=== PATIENT | female | born 1990 | race Caucasian/White ===

== ENCOUNTER → 2016-03-08 | Outpatient (CLI) | payer BC ==
[~2016-03-08] MED LIST: DOCU-94 PO; MTR600X PO; OXYC-57 PO; PRENTAB26 PO; ZANTAC PO
[2016-03-08 16:42] LABS: HEMATOCRIT 34.6 % (37-47)
[2016-03-08 17:26] LABS: GTGD 50 Grams
== END | disposition home or self-care (01) ==
LOC: C.LAB1850 15:18
PROVIDERS: ATTEND Obstetrics & Gynecology
DX: Z34.93 Encounter for supervision of normal pregnancy, unspecified, third trimester (principal)

== ENCOUNTER → 2016-03-08 | Outpatient (CLI) | payer BC ==
[2016-03-08 18:50] LABS: URINE APPEARANCE CLEAR (CLEAR); URINE BILIRUBIN NEG (NEG); URINE COLOR YELLOW; URINE NITRITE NEG (NEG); URINE SPECIFIC GRAVITY 1.008 (1.000-1.030); UROBILINOGEN NEG (NEG)
[2016-03-08 19:00] LABS: MANUAL MICROSCOPIC REQUIRED? NO; REVIEW REQ? NO
== END | disposition home or self-care (01) ==
LOC: C.LABSPEC 17:55
PROVIDERS: ATTEND Obstetrics & Gynecology
DX: Z34.93 Encounter for supervision of normal pregnancy, unspecified, third trimester (principal)

== ENCOUNTER → 2016-05-04 | Outpatient (CLI) | payer BC | END | disposition home or self-care (01) | LOC: C.LABSPEC 17:32 | PROVIDERS: ATTEND Obstetrics & Gynecology | DX: Z34.93 Encounter for supervision of normal pregnancy, unspecified, third trimester (principal) ==

== ENCOUNTER 2016-05-24 07:30 | Inpatient (IN) | payer BC ==
[~2016-05-24] VITALS: Ht 160 cm; Wt 91.0 kg
[~2016-05-24 07:30] MED LIST changes: -DOCU-94 PO; -MTR600X PO; -OXYC-57 PO; -ZANTAC PO
[2016-05-28] MEDS ORDERED: DOCU-94 PO (13:48)
[2016-05-28] MEDS ORDERED: ZANTAC PO (13:49)
--- NOTE | 2016-05-28 14:13 | HISTORY & PHYSICAL EXAMINATION ---
DATE OF ADMISSION: 05/31/2016 CHIEF COMPLAINT: 1. Intrauterine at 40 and 3. 2. History of previous section. HISTORY OF PRESENT ILLNESS: Rose is a 26-year-old white female 2, para 1-0-0-1 with a history of a previous section in her prior . Apparently, she failed to progress after 9 cm to deliver a 8 pound 3 ounce baby at 40 weeks. The patient was hoping for , but unfortunately has not labored and now presents for a default repeat section. She notes good movement, no real contractions, leaking of fluid or vaginal bleeding. Her current has been uncomplicated. She has been troubled with some heartburn, for which she has taken Zantac. PAST OBSTETRIC AND GYNECOLOGIC HISTORY: As noted above. She denies history of abnormal Pap smears or STDs. She did have PIH in her first , but her pressures have been normal in this . ALLERGIES: No known drug allergies. MEDICATIONS: vitamins, Zantac and Colace. PAST MEDICAL HISTORY: Significant for PIH. She denies thyroid disease, asthma, heart disease, heart murmur, diabetes, kidney or liver problems. PAST SURGICAL HISTORY: Include and appendectomy. SOCIAL HISTORY: The patient denies tobacco, alcohol or drug use. She lives with her spouse and child. FAMILY HISTORY: The patient's mother recently diagnosed with hemochromatosis, but otherwise there is no significant cancer history. PHYSICAL EXAMINATION: GENERAL: This is a well-developed and well-nourished white female in no acute distress. VITAL SIGNS: Her blood pressure is 112/62 and her weight is 200 pounds. CHEST: Clear to auscultation bilaterally. CARDIOVASCULAR: Regular rate and rhythm without murmurs, gallops or rubs. BACK: Without costovertebral angle tenderness. ABDOMEN: Soft, gravid and nontender. EXTREMITIES: Show trace edema, but are otherwise benign. PELVIC: Deferred. LABORATORY DATA: Blood type O positive, antibody negative, rubella immune, RPR nonreactive, hepatitis B negative, HIV negative, chlamydia and gonorrhea cultures negative. One-hour glucose tolerance test 89. A 28-week glucose tolerance test 114. GBS is negative. ASSESSMENT: Rose is a 26-year-old white female 2, para 1-0-0-1 at 40 and 3/7th weeks, who presents for repeat delivery. The patient was consented for delivery. The risks of the procedure were discussed with the patient including the risks of anesthesia, bleeding requiring transfusion, infection, poor wound healing, damage to surrounding structures including bowel, bladder, vessels, nerves and ureters with need for further surgery, hospitalization or intervention. We also discussed the small risk of injury to the baby. We discussed the risks of surgery including heart attack, blood clot, stroke or . Questions were asked and answered. Consent was reviewed and signed and surgery is planned for May 31. SILVESTRE
--- NOTE | 2016-05-28 14:16 | PAT Medication Instructions ---
Service Date May 28, 2016. Current Home Medication List Docusate Sodium (Colace), 1 CAP PO BID Multivit/Min/Iron/Fol Ac/Pren ( Vitamin), 1 TAB PO QAM [Zantac], 75 MG PO PRN Medication Instructions For Your Scheduled Surgery - Hold the following medications the morning of surgery: [Zantac], 75 MG PO PRN Multivit/Min/Iron/Fol Ac/Pren ( Vitamin), 1 TAB PO QAM Docusate Sodium (Colace), 1 CAP PO BID - Take the following medications as scheduled the night before surgery: [Zantac], 75 MG PO PRN Docusate Sodium (Colace), 1 CAP PO BID If you have any questions please call us at [phone] (Leila Mark PA-C) or [phone] or [phone]
[2016-05-28 14:47] LABS: BASO % 0.1 %; BASO ABS # 0.01 K/uL (0-0.2); COMPLETE YES; EOS % 1.3 %; HEMATOCRIT 32.8 % (37-47); IG% 0.4 %; LYMPH % 15.6 %; LYMPH ABS # 1.42 K/uL (1.2-3.4); MEAN CORPUSCULAR HEMOGLOBIN 26.1 pg (25-34); MEAN CORPUSCULAR HGB CONC 32.6 g/dl (32-36); MONO % 5.5 %; NEUT % 77.1 %; PLATELET COUNT 152 K/uL (130-400); WHITE BLOOD COUNT 9.13 K/uL (4.8-10.8)
[2016-05-31] VITALS (11 sets, daily range): BP systolic 103–132; BP diastolic 60–81; PULSE 74–86; TEMP 36.6–37.3; O2SAT 93–100; Ht 160 cm; Wt 91.0 kg
[2016-05-31] MEDS ORDERED: LACTATED RINGER'S 1000ML 1,000 ML IV SCH (05:45)
[2016-05-31] MEDS ORDERED: CEFAZOLIN 2000 MG/60 ML D5W 50 ML IV SCH (06:00)
[2016-05-31] MEDS ORDERED: CITRIC ACID/SODIUM CITRATE 15 ML UDC PO SCH (06:00)
[2016-05-31] MEDS ORDERED: CEFAZOLIN IV 2,000 MG in DEXTROSE 5% 50ML 50 ML IV SCH (06:00)
[2016-05-31] MEDS ORDERED: LACTATED RINGER'S 1000ML 1,000 ML IV ONE (06:00)
[2016-05-31 06:16] LABS: BASO % 0.1 %; BASO ABS # 0.01 K/uL (0-0.2); COMPLETE YES; EOS % 1.4 %; HEMATOCRIT 32.2 % (37-47); IG% 0.5 %; LYMPH % 17.6 %; LYMPH ABS # 1.38 K/uL (1.2-3.4); MEAN CELL VOLUME 79.1 fL (80-100); MEAN CORPUSCULAR HEMOGLOBIN 26.5 pg (25-34); MEAN CORPUSCULAR HGB CONC 33.5 g/dl (32-36); MEAN PLATELET VOLUME 9.9 fL (7.4-10.4); MONO % 6.6 %; NEUT % 73.8 %; PLATELET COUNT 159 K/uL (130-400); RED BLOOD COUNT 4.07 M/uL (4.2-5.4); WHITE BLOOD COUNT 7.85 K/uL (4.8-10.8)
[2016-05-31] MEDS: LACTATED RINGER'S 1000ML 1,000 ML IV SCH ×2 (07:08→17:59)
[2016-05-31] MEDS ORDERED: FENTANYL CITRATE INJ 50 MCG/1 ML 2 ML VIAL ONE (07:19)
[2016-05-31] MEDS ORDERED: MoRPHine SULFATE PF 1 MG/ML 10 ML AMP/VIAL ONE (07:21)
[2016-05-31] MEDS ORDERED: PHENYLEPHRINE HCL INJ 10 MG/ML VIAL ONE (08:05)
[2016-05-31] MEDS ORDERED: OXYTOCIN INJ 10 UNITS/ML VIAL ONE ×3 (08:05→08:27)
[2016-05-31] MEDS ORDERED: METHYLERGONOVINE MALEATE 0.2 MG/ML AMP ONE (08:28)
[2016-05-31] MEDS ORDERED: OXYTOCIN INJ 20 UNITS in LACTATED RINGER'S 1000ML 1,000 ML IV SCH ×2 (08:44→08:54)
[2016-05-31] MEDS ORDERED: BENZOCAINE 20% AER SPR 82.5 GM CAN EXT PRN (08:45)
[2016-05-31] MEDS ORDERED: HYDROCORTISONE ACETATE 25 MG SUPP PR PRN (08:45)
[2016-05-31] MEDS ORDERED: SENNA 8.6 MG TAB PO PRN (08:45)
[2016-05-31] MEDS ORDERED: MAGNESIUM HYDROXIDE SUSP 30 ML UDC PO PRN (08:45)
[2016-05-31] MEDS ORDERED: RANITIDINE HCL 150 MG TAB PO PRN (08:45)
[2016-05-31] MEDS ORDERED: DIPHTHERIA/TETANUS/PERTUSSIS 0.5 ML SYR/VIAL IM. ONE (08:45)
[2016-05-31] MEDS ORDERED: SUPERCREAM 0.870 % 15GM JAR EXT PRN (08:45)
[2016-05-31] MEDS ORDERED: LANOLIN OINT EXT PRN ×2 (08:45)
[2016-05-31] MEDS ORDERED: NALOXONE HCL INJ 0.08 MG in SYRINGE 1.8 ML IV PRN (09:01)
[2016-05-31] MEDS ORDERED: NALOXONE HCL INJ 1 MG in SODIUM CHLORIDE 0.9% 1000ML 1,000 ML IV PRN ×4 (09:01)
[2016-05-31] MEDS ORDERED: LACTATED RINGER'S 1000ML 500 ML IV PRN (09:01)
[2016-05-31] MEDS ORDERED: SODIUM CHLORIDE 0.9% 1000ML 1,000 ML IV PRN (09:01)
--- NOTE | 2016-05-31 09:04 | [facility] Post Operative Brief Note ---
Immediate Operative Summary Operative Date May 31, 2016. Pre-Operative Diagnosis Inter uterine at 40 weeks. Desires caesarean section. Previous caesarean section. Post-Operative Diagnosis Same as above. Procedure(s) Performed Repeat caesarean section. Delivery of live female child at 0814. Surgeon Dr. Oviedo Remote Sensing Research Scientist Surgeon(s) Dr. Gonzalez Estimated Blood Loss 800cc Findings Delivered a viable male infant, APGARS 7,8. Weight 9 lbs 1oz. Normal uterus, fallopian tubes and ovaries bilaterally Specimens A: Placenta B: Cord blood C: Cord gasses Drains Alonso to gravity Anesthesia Spinal Complication(s) None Disposition L&D
--- NOTE | 2016-05-31 09:12 | Medical Student: [facility] ---
Immediate Operative Summary Operative Date May 31, 2016. Pre-Operative Diagnosis Intrauterine at 40 weeks. Previous . Desires Repeat. Post-Operative Diagnosis Same. Procedure(s) Performed Section, repeat. Delivery of viable female infant at 0814. Surgeon Dr. Oviedo Abstractor Surgeon(s) Dr. Gonzalez Estimated Blood Loss 800cc Findings Viable female . APGARs 7, 8 at 1 and 5 minutes. Weight 9lb 1oz. Normal uterus, fallopian tubes and ovaries. Extensive adhesions of uterus to abdominal wall. Fluids (cc crystalloids) 1450mL Lactated Ringers Specimens A. Placenta B. Cord Blood C. Cord gasses Drains Alonso Anesthesia Spinal Complication(s) None Disposition L&D
[2016-05-31] MEDS ORDERED: DiphenhydrAMINE HCL 50 MG/ML VIAL IV PRN (09:15)
[2016-05-31] MEDS ORDERED: NALBUPHINE HCL INJ 10 MG/ML AMP IV PRN (09:15)
[2016-05-31] MEDS ORDERED: METOCLOPRAMIDE HCL INJ 20 MG in SODIUM CHLORIDE 0.9% 50ML 50 ML IV PRN (09:15)
[2016-05-31] MEDS ORDERED: MoRPHine SULFATE PF 1 MG/ML 10 ML AMP/VIAL EPI PRN (09:15)
[2016-05-31] MEDS ORDERED: NALOXONE HCL 0.4 MG/1 ML VIAL/CARP IV PRN (09:15)
[2016-05-31] MEDS ORDERED: PROMETHAZINE HCL INJ 25 MG in SODIUM CHLORIDE 0.9% 50ML 50 ML IV PRN (09:15)
[2016-05-31] MEDS ORDERED: ONDANSETRON INJ 2 MG/ML 2 ML VIAL IV PRN (09:15)
[2016-05-31] MEDS ORDERED: EpHEDrine SULFATE INJ 50 MG/ML AMP IV PRN (09:15)
[2016-05-31] MEDS ORDERED: KETOROLAC TROMETHAMINE 30 MG/ML VIAL IV. PRN (09:15)
[2016-05-31] MEDS ORDERED: NO NARCOTICS OR SEDATIVES SCH (09:15)
--- NOTE | 2016-05-31 09:45 | OPERATIVE REPORT ---
DATE OF OPERATION: 05/31/2016 PREOPERATIVE DIAGNOSES: 1. Intrauterine at 40 and 2/7 weeks. 2. History of previous section, desires repeat section. POSTOPERATIVE DIAGNOSES: 1. Same. 2. Same. 3. Adhesions of the anterior abdominal wall to the uterus. PROCEDURES: 1. Repeat lower transverse section via Pfannenstiel incision. 2. Lysis of adhesions. SURGEON: Abiola Oviedo MD ASSISTANTS: Lizbeth Metz, PGY1 and Veena Alves MS3. ANESTHESIA: Spinal. ESTIMATED BLOOD LOSS: 800 mL. FLUIDS: 1400 mL. URINE OUTPUT: 200 mL of clear yellow urine draining from the bladder at the end of the procedure. INDICATIONS FOR PROCEDURE: Rose is a 26-year-old 2, para 1-0-0-1 with an intrauterine at 40 and 2/7 weeks. Her previous delivery was a section for a 9+ pound baby. She hopes to but is now at her default section date. FINDINGS: Viable female . Delivered in cephalic presentation. Apgars and weight pending. I was unable to exteriorize the uterus. There were 2 large thick adhesions from the anterior abdominal wall to the uterus that were taken down. There were some omental adhesions in the left upper fundal region that were not taken down. The tubes and ovaries were not adequately visualized. COMPLICATIONS: None. DRAINS: Alonso. DISPOSITION: To recovery room in stable condition. DESCRIPTION OF PROCEDURE: The patient was taken to the operating room where she was identified verbally and by bracelet. She was seated on the operating table where spinal anesthetic was placed. She was then placed in a dorsal supine position with a leftward tilt. A Alonso catheter was placed sterilely and she was prepped and draped in normal sterile fashion. Anesthetic was tested and found to be adequate. Time-out was held identifying correct patient, procedure, positioning, and preoperative antibiotics. A Pfannenstiel skin incision was made with the knife and taken down to the underlying layer of fascia with Bovie electrocautery and sharp dissection. The fascia was incised with the knife and taken out laterally with scissors. The superior edge of the fascial incision was grasped, elevated and the underlying layer of rectus muscle was taken off bluntly and with scissors. In a similar fashion, the inferior edge of the fascial incision was grasped, elevated and the underlying rectus layer of rectus muscle was taken off bluntly and with scissors. The peritoneum was entered sharply by grasping with a snap and entering sharply. The aerial tram operator's finger was placed underneath it and adhesions particularly on the left side of the uterus were encountered. I was able to take the peritoneal incision superiorly and inferiorly with good visualization of the bladder. I took down some adhesions sharply and with Bovie electrocautery on the left and I was then able to stretch the incision. The bladder blade was placed. The bladder flap was created sharply with scissors. The hysterotomy incision was made with the knife. This was stretched somewhat fingers but then required cutting with bandage scissors. I was unable to deliver the head through the hysterotomy incision and so vacuum was called for. The vacuum was placed, and the head was delivered atraumatically through the incision. The nose and mouth was bulb suctioned. The nuchal cord was reduced x1 and then the rest of the was then delivered without difficulty. The nose and mouth was again bulb suctioned. The cord was clamped and cut and the was taken over to the waiting pediatricians for drying and attention. Cord blood and segment were obtained. The placenta was manually extracted. The uterus was cleared of all clot and debris with moistened laparotomy sponges. Retractors were replaced, the incision edges were grasped with T clamps and the hysterotomy incision was then repaired with 2-0 Vicryl sutures, the first in a running locked fashion and the second in an imbricating fashion. A sponge was placed over this. The attention was then turned to a very large adhesion of the anterior abdominal wall to the uterus. This was taken down using Bovie electrocautery. Then some oozing from the uterine side the adhesion was attended to with 2 [id number] sutures until hemostasis was assured. The uterus was firming clamp down at this time. Palpation of the uterus revealed some further adhesions of the omentum to the upper left fundus of the uterus. I decided not to take down because of the potential for bleeding. Hysterotomy incision was again inspected and found to be hemostatic. The rectus muscles were reapproximated in the midline with 3 interrupted sutures of 0 Vicryl. The muscles were then noted to be hemostatic. The fascia was reapproximated with 0 Vicryl meeting in the midline. Subcuticular tissue was copiously irrigated with warm normal saline. Bleeding was attended to with Bovie electrocautery and the skin was then closed with 4-0 Vicryl in a subcuticular fashion. All sponge, lap and needle counts were correct x2. The patient tolerated the procedure well and was taken to recovery room in stable condition. I attest to the content of the Intraoperative Record and any orders documented therein. Any exceptions are noted below. SILVESTRE
--- NOTE | 2016-05-31 09:58 | Anesthesiology Progress Note ---
Anesthesia Post Op Note Date & Time May 31, 2016 at 09:56 Notes Mental Status: alert / awake / arousable, participated in evaluation Pt Amnestic to Procedure: No Nausea / Vomiting: adequately controlled Pain: adequately controlled Airway Patency, RR, SpO2: stable & adequate BP & HR: stable & adequate Hydration State: stable & adequate Neuraxial Anesthesia: was administered, sensory block is resolving Anesthetic Complications: no major complications apparent
[2016-05-31] MEDS: DOCUSATE SODIUM 100 MG CAP PO SCH (20:00)
[2016-05-31] MEDS ORDERED: DOCUSATE SODIUM 100 MG CAP PO SCH (20:00)
[2016-06-01] VITALS (8 sets, daily range): BP systolic 105–113; BP diastolic 68–74; PULSE 73–84; TEMP 36.5–36.9; O2SAT 94–99
[2016-06-01] MEDS ORDERED: KETOROLAC TROMETHAMINE 30 MG/ML VIAL IV. PRN (03:00)
[2016-06-01] MEDS ORDERED: DC INTRASPINAL MORPHINE ONE (03:00)
[2016-06-01] MEDS ORDERED: DiphenhydrAMINE HCL 50 MG/ML VIAL IV PRN (03:00)
[2016-06-01] MEDS ORDERED: OXYCODONE/ACETAMINOPHEN 5-325 TAB PO PRN ×2 (03:00)
[2016-06-01] MEDS ORDERED: PROMETHAZINE HCL INJ 25 MG in SODIUM CHLORIDE 0.9% 50ML 50 ML IV PRN (03:00)
[2016-06-01] MEDS ORDERED: ONDANSETRON INJ 2 MG/ML 2 ML VIAL IV PRN (03:00)
[2016-06-01 06:26] LABS: BASO % 0.2 %; BASO ABS # 0.02 K/uL (0-0.2); EOS % 1.1 %; HEMATOCRIT 25.4 % (37-47); IG% 0.2 %; LYMPH % 13.7 %; LYMPH ABS # 1.29 K/uL (1.2-3.4); MEAN CELL VOLUME 79.6 fL (80-100); MEAN CORPUSCULAR HGB CONC 32.7 g/dl (32-36); MEAN PLATELET VOLUME 9.5 fL (7.4-10.4); MONO % 5.9 %; NEUT % 78.9 %; PLATELET COUNT 150 K/uL (130-400); RED BLOOD COUNT 3.19 M/uL (4.2-5.4); WHITE BLOOD COUNT 9.42 K/uL (4.8-10.8)
--- NOTE | 2016-06-01 06:52 | Medical Student: [facility] ---
Med Student [facility] Progress Nt Date of Service Jun 01, 2016. Subjective conversation w/ patient Ambulation: limited ambulation (just had lynn out at 0630, given clearance to ambulate to bathroom and chair) Voiding: no voiding problems Passing Gas: Yes Diet Tolerance: Regular Diet Lochia: Moderate Feeding Type: Breast Feeding Pain: 2/10, controlled with pain medication Review of Systems Constitutional: No chills, No fever Respiratory: No cough, No shortness of breath Cardiac: No chest pain, No edema, No palpitations Breast: No breast pain, No problem reported Abdomen: + pain (with movement), No nausea, No vomiting Female : No dysuria, No urinary frequency Objective Vital Signs Date Time Temp Pulse Resp B/P Pulse Ox O2 Delivery O2 Flow Rate FiO2 06/01/16 05:00 18 96 06/01/16 04:00 16 96 06/01/16 03:39 36.9 84 18 105/68 Room Air 06/01/16 03:00 18 98 06/01/16 02:00 18 94 06/01/16 01:00 18 96 06/01/16 00:00 18 05/31/16 23:45 36.6 74 20 103/60 99 Room Air 05/31/16 23:45 99 Room Air 05/31/16 23:00 18 93 05/31/16 22:00 18 95 05/31/16 21:00 18 96 05/31/16 20:00 18 98 05/31/16 20:00 37.3 86 18 109/70 98 Room Air 05/31/16 19:15 18 98 05/31/16 18:15 18 97 05/31/16 16:15 95 Room Air 05/31/16 16:15 18 95 05/31/16 16:15 37.3 84 18 111/73 95 Room Air 05/31/16 15:15 18 100 05/31/16 13:10 95 Room Air 05/31/16 13:10 81 16 132/81 95 Room Air 05/31/16 13:10 95 Room Air 05/31/16 13:10 81 16 132/81 95 Room Air 05/31/16 13:10 16 95 Physical Exam General Appearance: WELL-APPEARING, NO APPARENT DISTRESS Respiratory/Chest: normal breath sounds, no respiratory distress, no accessory muscle use Cardiovascular: regular rate, rhythm, no edema, no murmur Abdomen: normal bowel sounds, soft Fundus: Firm, Non-Tender, Relation to Umbilicus (1 cm below) Incision Description: Clean, Dry & Intact Extremities: non-tender, no pedal edema, no calf tenderness Laboratory Results Last 24 Hours Test 06/01/16 05:59 White Blood Count 9.42 K/uL Red Blood Count 3.19 M/uL Hemoglobin 8.3 g/dL Hematocrit 25.4 % Mean Corpuscular Volume 79.6 fL Mean Corpuscular Hemoglobin 26.0 pg Mean Corpuscular Hemoglobin Concent 32.7 g/dl Platelet Count 150 K/uL Mean Platelet Volume 9.5 fL Neutrophils (%) (Auto) 78.9 % Lymphocytes (%) (Auto) 13.7 % Monocytes (%) (Auto) 5.9 % Eosinophils (%) (Auto) 1.1 % Basophils (%) (Auto) 0.2 % Neutrophils # (Auto) 7.43 K/uL Lymphocytes # (Auto) 1.29 K/uL Monocytes # (Auto) 0.56 K/uL Eosinophils # (Auto) 0.10 K/uL Basophils # (Auto) 0.02 K/uL RDW Standard Deviation 46.2 fL RDW Coefficient of Variation 15.8 % Immature Granulocyte % (Auto) 0.2 % Immature Granulocyte # (Auto) 0.02 K/uL Medications Current Inpatient Medications Medications (Trade) Dose Ordered Sig/Lorne Route Start Time Stop Time Status Last Admin Dose Admin Lactated Ringer's (Lr 1000ml) 1,000 ml @ 125 mls/hr Q8H IV 05/31/16 06:45 06/30/16 06:44 05/31/16 17:59 125 MLS/HR Prenat Multivit/ [place]/Iron/Folic Ac ( Vitamin Tab) 1 tab QAM PO 06/01/16 08:00 07/01/16 07:59 Ranitidine HCl (zANTac TAB) 75 mg DAILY PRN PO 05/31/16 08:45 06/30/16 08:44 Ketorolac Tromethamine (Toradol Inj) 30 mg Q6H PRN IV. 06/01/16 03:00 06/06/16 02:59 Oxycodone/ Acetaminophen (Percocet 5-325mg Tab) 1 tab Q4H PRN PO 06/01/16 03:00 06/15/16 02:59 Oxycodone/ Acetaminophen (Percocet 5-325mg Tab) 2 tab Q4H PRN PO 06/01/16 03:00 06/15/16 02:59 Ibuprofen 600 mg 600 mg Q4H PRN PO 05/31/16 08:45 06/30/16 08:44 Promethazine HCl/ Sodium Chloride (Phenergan Inj/ Nss 50ml) 51 ml @ 204 mls/hr Q4H PRN IV 06/01/16 03:00 07/01/16 02:59 Ondansetron HCl (Zofran Inj) 4 mg Q4H PRN IV 06/01/16 03:00 07/01/16 02:59 Bisacodyl (Dulcolax Tab) 5 mg HS ONCE PO 06/01/16 22:00 06/01/16 22:01 Bisacodyl (Dulcolax Supp) 10 mg PRN PRN [place] 06/02/16 08:45 07/02/16 08:44 Docusate Sodium (coLACE CAP) 100 mg BID PO 05/31/16 20:00 06/30/16 19:59 Magnesium Hydroxide (Milk Of Magnesia Susp) 30 ml HS PRN PO 05/31/16 08:45 06/30/16 08:44 Cocaine HCl (Supercream 0.870% Cr) BID PRN EXT 05/31/16 08:45 06/14/16 08:44 Lanolin (Lanolin Oint) PRN PRN EXT 05/31/16 08:45 06/30/16 08:44 Hydrocortisone Acetate (Anusol Hc Supp) 25 mg BID PRN [place] 05/31/16 08:45 06/30/16 08:44 Benzocaine (Dermoplast Aero Spr) 1 appln PRN PRN EXT 05/31/16 08:45 06/30/16 08:44 Diphenhydramine HCl (Benadryl Cap) 25 mg QID PRN PO 06/01/16 03:00 07/01/16 02:59 Diphenhydramine HCl (Benadryl Inj) 25 mg QID PRN IV 06/01/16 03:00 07/01/16 02:59 Senna (Senokot Tab) 17.2 mg HS PRN PO 05/31/16 08:45 06/30/16 08:44 Assessment and Plan Post-Op Day Number: 1 Continue Routine Care: ASSESSMENT: Rose is a 26 year old postop day #1 from a repeat section at 40 2/7 weeks. She is Blood type O+, GBS negative and Rubella immune. She is doing well clinically. PLAN: Continue routine care. Encourage ambulation as tolerated. Encourage . Pain medication as needed. Resident Physician Supervision Note: I interviewed and examined the patient. Discussed with Dr. Gonzalez and agree with findings and plan as documented in the note. Any exceptions or clarifications are listed here: [None] Documented By: Gerald Quezada
[2016-06-01 07:03] LABS: COMPLETE YES; POLYCHROMASIA 1+
--- NOTE | 2016-06-01 07:18 | Progress Note ---
Subjective Jun 01, 2016. Subjective conversation w/ patient, physical exam Ambulation: limited ambulation (because of lynn) Voiding: no voiding problems Passing Gas: Yes Diet Tolerance: Regular Diet Lochia: Moderate Feeding Type: Breast Feeding Pain: 3/10 improves with medication Comment: Patient was seen at the bedside. No acute event overnight. Review of Systems Constitutional: No fever Respiratory: No cough, No shortness of breath Cardiac: No chest pain Breast: No breast lump Abdomen: No nausea, No pain, No vomiting Female : No dysuria Denies headache Objective Vital Signs Date Time Temp Pulse Resp B/P Pulse Ox O2 Delivery O2 Flow Rate FiO2 06/01/16 05:00 18 96 06/01/16 04:00 16 96 06/01/16 03:39 36.9 84 18 105/68 Room Air 06/01/16 03:00 18 98 06/01/16 02:00 18 94 06/01/16 01:00 18 96 06/01/16 00:00 18 05/31/16 23:45 36.6 74 20 103/60 99 Room Air 05/31/16 23:45 99 Room Air 05/31/16 23:00 18 93 05/31/16 22:00 18 95 05/31/16 21:00 18 96 05/31/16 20:00 18 98 05/31/16 20:00 37.3 86 18 109/70 98 Room Air 05/31/16 19:15 18 98 05/31/16 18:15 18 97 05/31/16 16:15 95 Room Air 05/31/16 16:15 18 95 05/31/16 16:15 37.3 84 18 111/73 95 Room Air 05/31/16 15:15 18 100 05/31/16 13:10 95 Room Air 05/31/16 13:10 81 16 132/81 95 Room Air 05/31/16 13:10 95 Room Air 05/31/16 13:10 81 16 132/81 95 Room Air 05/31/16 13:10 16 95 Physical Exam General Appearance: WELL-APPEARING, WD/WN Respiratory/Chest: chest non-tender, lungs clear, normal breath sounds Cardiovascular: regular rate, rhythm Abdomen: normal bowel sounds, non tender, soft Fundus: Firm, Relation to Umbilicus (1cm below) Incision Description: Clean, Dry & Intact Extremities: non-tender, no calf tenderness, + pedal edema Laboratory Results Last 24 Hours Test 06/01/16 05:59 White Blood Count 9.42 K/uL Red Blood Count 3.19 M/uL Hemoglobin 8.3 g/dL Hematocrit 25.4 % Mean Corpuscular Volume 79.6 fL Mean Corpuscular Hemoglobin 26.0 pg Mean Corpuscular Hemoglobin Concent 32.7 g/dl Platelet Count 150 K/uL Mean Platelet Volume 9.5 fL Neutrophils (%) (Auto) 78.9 % Lymphocytes (%) (Auto) 13.7 % Monocytes (%) (Auto) 5.9 % Eosinophils (%) (Auto) 1.1 % Basophils (%) (Auto) 0.2 % Neutrophils # (Auto) 7.43 K/uL Lymphocytes # (Auto) 1.29 K/uL Monocytes # (Auto) 0.56 K/uL Eosinophils # (Auto) 0.10 K/uL Basophils # (Auto) 0.02 K/uL RDW Standard Deviation 46.2 fL RDW Coefficient of Variation 15.8 % Immature Granulocyte % (Auto) 0.2 % Immature Granulocyte # (Auto) 0.02 K/uL Polychromasia 1+ Medications Current Inpatient Medications Medications (Trade) Dose Ordered Sig/Lorne Route Start Time Stop Time Status Last Admin Dose Admin Lactated Ringer's (Lr 1000ml) 1,000 ml @ 125 mls/hr Q8H IV 05/31/16 06:45 06/30/16 06:44 05/31/16 17:59 125 MLS/HR Prenat Multivit/ [place]/Iron/Folic Ac ( Vitamin Tab) 1 tab QAM PO 06/01/16 08:00 07/01/16 07:59 Ranitidine HCl (zANTac TAB) 75 mg DAILY PRN PO 05/31/16 08:45 06/30/16 08:44 Ketorolac Tromethamine (Toradol Inj) 30 mg Q6H PRN IV. 06/01/16 03:00 06/06/16 02:59 Oxycodone/ Acetaminophen (Percocet 5-325mg Tab) 1 tab Q4H PRN PO 06/01/16 03:00 06/15/16 02:59 Oxycodone/ Acetaminophen (Percocet 5-325mg Tab) 2 tab Q4H PRN PO 06/01/16 03:00 06/15/16 02:59 Ibuprofen 600 mg 600 mg Q4H PRN PO 05/31/16 08:45 06/30/16 08:44 Promethazine HCl/ Sodium Chloride (Phenergan Inj/ Nss 50ml) 51 ml @ 204 mls/hr Q4H PRN IV 06/01/16 03:00 07/01/16 02:59 Ondansetron HCl (Zofran Inj) 4 mg Q4H PRN IV 06/01/16 03:00 07/01/16 02:59 Bisacodyl (Dulcolax Tab) 5 mg HS ONCE PO 06/01/16 22:00 06/01/16 22:01 Bisacodyl (Dulcolax Supp) 10 mg PRN PRN [place] 06/02/16 08:45 07/02/16 08:44 Docusate Sodium (coLACE CAP) 100 mg BID PO 05/31/16 20:00 06/30/16 19:59 Magnesium Hydroxide (Milk Of Magnesia Susp) 30 ml HS PRN PO 05/31/16 08:45 06/30/16 08:44 Cocaine HCl (Supercream 0.870% Cr) BID PRN EXT 05/31/16 08:45 06/14/16 08:44 Lanolin (Lanolin Oint) PRN PRN EXT 05/31/16 08:45 06/30/16 08:44 Hydrocortisone Acetate (Anusol Hc Supp) 25 mg BID PRN [place] 05/31/16 08:45 06/30/16 08:44 Benzocaine (Dermoplast Aero Spr) 1 appln PRN PRN EXT 05/31/16 08:45 06/30/16 08:44 Diphenhydramine HCl (Benadryl Cap) 25 mg QID PRN PO 06/01/16 03:00 07/01/16 02:59 Diphenhydramine HCl (Benadryl Inj) 25 mg QID PRN IV 06/01/16 03:00 07/01/16 02:59 Senna (Senokot Tab) 17.2 mg HS PRN PO 05/31/16 08:45 06/30/16 08:44 Assessment and Plan Post-Op Day#: 1 Continue Routine Care: A/P: This is a 26 y/o female, , s/p elective repeat . She is ambulating and clinically stable. Plan: - Vitals signs are reviewed and WNL (Tmax 36.9 ) - Last Hgb is 8.3 - Blood type O+, GBS neg, Rubella Immune - Routine care - Encourage ambulation, monitor and control pain with medication as needed , continue with regular diet as tolerated and monitor lochia - Stool softeners and sitz bath recommended - Encourage breast feeding and educate about breast feeding
[2016-06-01] MEDS: PRENATAL VITAMIN TAB PO SCH (07:37)
[2016-06-01] MEDS: DOCUSATE SODIUM 100 MG CAP PO SCH ×2 (07:37→20:10)
[2016-06-01] MEDS: IBUPROFEN 600 MG TAB PO PRN ×3 (07:37→20:10)
[2016-06-01] MEDS ORDERED: PRENATAL VITAMIN TAB PO SCH (08:00)
[2016-06-01] MEDS ORDERED: BISACODYL 5 MG TABEC PO ONE (22:00)
[2016-06-02 00:15] VITALS: BP 111/73; PULSE 76; TEMP 36.8
--- NOTE | 2016-06-02 06:50 | Discharge Instructions ---
Discharge Instructions Date of Service Jun 02, 2016. Admission Reason for Admission: Prior Section Discharge Discharge Diagnosis / Problem: s/p Discharge Goals Goal(s): Routine recovery after Medications Continue Dispensed Medications: supercream, dermaplast, tucks, lansinoh Activity Recommendations Activity Limitations: as noted below . Instructions / Follow-Up Instructions / Follow-Up ACTIVITY RECOMMENDATIONS: * Gradual return to full activity over the next 2-3 weeks. * No lifting - nothing heavier than baby over the next 2-3 weeks. * Do not engage in vigorous exercise, sexual activity or sports until cleared by your physician. * Do not drive or operate any motorized equipment until cleared by your physician. * You may shower/bathe daily. MEDICATIONS: For discomfort or pain, you may use Acetaminophen (Tylenol), Ibuprofen (Advil), or Naproxen (Aleve) following the package directions. For constipation you may use Colace following the package directions. BREAST CARE: If you are not breast feeding: * Wear a supportive bra 24 hours a day for one to two weeks. * Avoid stimulating your breasts and nipples as much as possible during the first few weeks after delivery. * When taking a shower, have the warm water hit your back, not breasts. * When your breasts feel full, apply ice packs. Usually three to four times a day helps ease the discomfort. * Take a mild pain medication (Tylenol / Motrin) when you are uncomfortable. If breast feeding: * Use breast milk to lubricate nipples. Lansinoh cream may be used for sore nipples. You do not need to remove cream prior to breast feeding. If using a different brand of cream, check the label for directions regarding removal of cream prior to nursing. * Wear a supportive bra. * If having problems with breasts or breast feeding, call a golf tournament consultant or your health care provider. SPECIAL CARE INSTRUCTIONS: When you are discharged from the hospital, it is important for you to follow the instructions listed below: * During the first week at home, you should be able to care for yourself and your baby. In addition, the usual light household activities are encouraged. * Limit your activities to the way you feel. Do not try to clean the house or move furniture. Be sensible. * If you actively engage in sports and have done so up until the time of your delivery, you may resume these activities as soon as you feel able. This may take up to one month or even longer. Use good judgment. * Continue to take your vitamins for at least six weeks after the of your baby. * Your diet need not be limited unless you were on a special diet before your delivery. Breast-feeding mothers need around 2500 calories per day and at least 64-80 ounces of fluid per day (8 to 10 glasses). * You should eat foods from the four major food groups. Crash diets or fad diets are to be avoided. Eating lean meats, fresh fruits and vegetables, low-fat dairy products, high fiber foods and a regular exercise program, will help you get back to your pre- weight without putting your health at risk. * Constipation is sometimes a problem after delivery. Take a mild laxative as needed. If breast feeding, Milk of Magnesia is acceptable to use. You may use a suppository or Fleets enema. * A daily shower or tub bath is suggested. Wash incision daily with warm soapy water and pat dry. It doesn't need to be covered unless drainage is present. * A bloody vaginal discharge will usually continue until around four weeks . A small amount of bleeding may continue for as long as six weeks. Vaginal discharge changes from the bright red bleeding after delivery to pink then brownish and finally yellowish-pink before becoming white and disappearing. * Bleeding may increase with activity. Your first period may come in 4-8 weeks. If you are breast feeding, your period may be delayed even longer. * Ainsworth (sex) can begin whenever both you and your partner feel comfortable and do not have any form of genital infection. It is recommended that you wait at least six weeks for internal and external healing to occur. If you have questions, please talk to your health care practitioner. A condom should be used to prevent infection and . * Foreplay, gentle intercourse and lubrication is very important the first several times to prevent pain. A water-based lubricant such as K-Y jelly or Astroglide may be used. * If you have RH negative blood and your baby is RH positive, you will receive RHOGAM by injection prior to discharge. The nurse will give you a card to keep with you that has the date and place that you received RHOGAM after delivery. * During your care, you had a Rubella screen done to check for the presence of rubella antibodies in your blood. If your test was negative, you will receive a Rubella vaccine prior to discharge. This vaccine may cause a fever, soreness at the injection site and flu-like symptoms. If these symptoms persist, notify your health care practitioner. is not advised for one month after a Rubella vaccine. * Verbalizes understanding of car seat law as reviewed with patient nursing. * Car Seat hand-out given and reviewed with patient by nursing. * Shaken baby information reviewed with patient by nursing. Call you doctor if: * Heavy bleeding (saturating several pads an hour) or passing clots the size of your fist. * A fever >101 degrees F (38.3 degrees C) on two occasions four hours apart and /or chills. * Unusual pain in the pelvic or vaginal areas. * Call the doctor for any increased redness, drainage or swelling around the incision and any pain unrelieved by prescribed pain medication. * "Baby Blues" lasting longer than two weeks. If you have any questions or concerns, call your health care practitioner at . FOLLOW UP VISIT: * Please call the office at to schedule a 6 week examination. It is important you keep this appointment. It is important for you to make arrangements for either yearly or twice yearly check-ups thereafter. Current Hospital Diet Patient's current hospital diet: Regular OB Diet Discharge Diet Recommended Diet: Regular Diet Procedures Procedures Performed: Repeat caesarean section. Delivery of live female child at 0814. Pending Studies Studies pending at discharge: no Medical Emergencies . Who to Call and When: Medical Emergencies: If at any time you feel your situation is an emergency, please call [phone] immediately. . Non-Emergent Contact Non-Emergency issues call your: Medical Lead . . "Provider Documentation" section prepared by Lizbeth Gonzalez. VTE Core Measure Inpt VTE Proph given/why not?: Treatment not indicated
--- NOTE | 2016-06-02 06:56 | Progress Note ---
Subjective Jun 02, 2016. Subjective conversation w/ patient, physical exam Ambulation: ambulating normally Voiding: no voiding problems Passing Gas: Yes Diet Tolerance: Regular Diet Lochia: Moderate Feeding Type: Breast Feeding Pain: 3/10 improves with medications Comment: Patient was seen at the bedside. No acute event overnight. Review of Systems Constitutional: No fever Respiratory: No cough, No shortness of breath Cardiac: No chest pain Breast: No breast lump Abdomen: No nausea, No pain, No vomiting Female : No dysuria Denies headache Objective Vital Signs Date Time Temp Pulse Resp B/P Pulse Ox O2 Delivery O2 Flow Rate FiO2 06/02/16 00:15 Room Air 06/02/16 00:15 36.8 76 16 111/73 Room Air 06/01/16 16:30 36.5 79 18 113/74 Room Air 06/01/16 16:30 97 Room Air 06/01/16 07:45 36.5 73 16 111/72 99 Room Air 06/01/16 07:45 99 Room Air Physical Exam General Appearance: WELL-APPEARING, WD/WN Respiratory/Chest: chest non-tender, lungs clear, normal breath sounds Cardiovascular: regular rate, rhythm Abdomen: normal bowel sounds, non tender, soft Fundus: Firm, Relation to Umbilicus (1cm below) Incision Description: Clean, Dry & Intact Extremities: non-tender, no calf tenderness, + pedal edema (b/l edema noted, improving) Laboratory Results Last 24 Hours Test 06/02/16 06:00 Medications Current Inpatient Medications Medications (Trade) Dose Ordered Sig/Lorne Route Start Time Stop Time Status Last Admin Dose Admin Lactated Ringer's (Lr 1000ml) 1,000 ml @ 125 mls/hr Q8H IV 05/31/16 06:45 06/30/16 06:44 05/31/16 17:59 125 MLS/HR Prenat Multivit/ Weldon/Iron/Folic Ac ( Vitamin Tab) 1 tab QAM PO 06/01/16 08:00 07/01/16 07:59 06/01/16 07:37 1 TAB Ranitidine HCl (zANTac TAB) 75 mg DAILY PRN PO 05/31/16 08:45 06/30/16 08:44 Ketorolac Tromethamine (Toradol Inj) 30 mg Q6H PRN IV. 06/01/16 03:00 06/06/16 02:59 Oxycodone/ Acetaminophen (Percocet 5-325mg Tab) 1 tab Q4H PRN PO 06/01/16 03:00 06/15/16 02:59 Oxycodone/ Acetaminophen (Percocet 5-325mg Tab) 2 tab Q4H PRN PO 06/01/16 03:00 06/15/16 02:59 Ibuprofen 600 mg 600 mg Q4H PRN PO 05/31/16 08:45 06/30/16 08:44 06/01/16 20:10 600 MG Promethazine HCl/ Sodium Chloride (Phenergan Inj/ Nss 50ml) 51 ml @ 204 mls/hr Q4H PRN IV 06/01/16 03:00 07/01/16 02:59 Ondansetron HCl (Zofran Inj) 4 mg Q4H PRN IV 06/01/16 03:00 07/01/16 02:59 Bisacodyl (Dulcolax Supp) 10 mg PRN PRN HI 06/02/16 08:45 07/02/16 08:44 Docusate Sodium (coLACE CAP) 100 mg BID PO 05/31/16 20:00 06/30/16 19:59 06/01/16 20:10 100 MG Magnesium Hydroxide (Milk Of Magnesia Susp) 30 ml HS PRN PO 05/31/16 08:45 06/30/16 08:44 Cocaine HCl (Supercream 0.870% Cr) BID PRN EXT 05/31/16 08:45 06/14/16 08:44 Lanolin (Lanolin Oint) PRN PRN EXT 05/31/16 08:45 06/30/16 08:44 Hydrocortisone Acetate (Anusol Hc Supp) 25 mg BID PRN HI 05/31/16 08:45 06/30/16 08:44 Benzocaine (Dermoplast Aero Spr) 1 appln PRN PRN EXT 05/31/16 08:45 06/30/16 08:44 Diphenhydramine HCl (Benadryl Cap) 25 mg QID PRN PO 06/01/16 03:00 07/01/16 02:59 Diphenhydramine HCl (Benadryl Inj) 25 mg QID PRN IV 06/01/16 03:00 07/01/16 02:59 Senna (Senokot Tab) 17.2 mg HS PRN PO 05/31/16 08:45 06/30/16 08:44 Assessment and Plan Post-Op Day#: 2 Continue Routine Care: A/P: This is a 26 y/o female, , s/p elective repeat . She is ambulating and clinically stable to discharge. - Vital signs are reviewed and WNL (Tmax 36.9 ) - Last Hgb 8.3 - Blood type O+, GBS neg, Rubella Immune - No signs of depression. - Routine care - Discussed resting, feeding, pain control, mastitis, control, follow up in 6 weeks and reasons to call sooner, if necessary. - Continue with pain medication as needed, and continue vitamins. - Encourage breast feeding and educate about breast feeding - Patient understands and keen for home. - Plan to discharge home Resident Physician Supervision Note: I interviewed and examined the patient. Discussed with Dr. Gonzalez and agree with findings and plan as documented in the note. Any exceptions or clarifications are listed here: [None] Documented By: Rodrigo Moran
[2016-06-02] MEDS ORDERED: MTR600X PO (07:04)
[2016-06-02] MEDS ORDERED: OXYC-57 PO (07:04)
[2016-06-02 07:26] LABS: HEMATOCRIT 28.8 % (37-47)
[2016-06-02 07:35] VITALS: BP 117/78; PULSE 76; TEMP 37; O2SAT 98
[2016-06-02] MEDS: DOCUSATE SODIUM 100 MG CAP PO SCH (07:48)
[2016-06-02] MEDS: PRENATAL VITAMIN TAB PO SCH (07:49)
[2016-06-02] MEDS: IBUPROFEN 600 MG TAB PO PRN ×2 (07:49→13:04)
[2016-06-02] MEDS ORDERED: BISACODYL 10 MG SUPP PR PRN (08:45)
[2016-06-02 15:00] VITALS: BP_DIAS 78; PULSE 76; TEMP 37
--- NOTE | 2016-06-07 10:59 | DISCHARGE SUMMARY ---
ADMISSION DIAGNOSES: 1. Intrauterine at 40 and 3/7 weeks. 2. History of previous section. DISCHARGE DIAGNOSES: Same. PROCEDURES: Repeat low transverse section. HISTORY OF PRESENT ILLNESS: Rose is a 26-year-old white female 2, para 1-0-0-1 with history of previous section in her prior . Apparently she failed to progress after 9 cm and then subsequently delivered an 8 pound 3 ounce baby at 40 weeks. The patient was helping to , but unfortunately has not labored and now presents for default repeat section. She notes good movement, no real contractions, no leaking of fluid or vaginal bleeding. Her current has been uncomplicated. She has been troubled with some heartburn for which she takes Zantac. For the rest of the patient's detailed history, please see her dictated history and physical. ASSESSMENT: Rose is a 26-year-old white female 2, para 1 at 40 and 3/7 weeks who presents for repeat delivery. HOSPITAL COURSE: The patient underwent a repeat low transverse section via Pfannenstiel incision with difficulty with needing significant lysis of adhesion. She delivered a viable female infant in cephalic presentation. I was unable to exteriorize the uterus. There were 2 large thick adhesions from the anterior abdominal wall to the uterus that were taken down. There were some omental adhesions in the left upper fundal region that were not taken down. The tubes and ovaries were not adequately visualized. The patient's course was uncomplicated. She tolerated a regular diet, ambulated without difficulty, had her pain well controlled with oral pain medications, voided after the removal of her Alonso catheter. She was . Her pain was well controlled on oral pain medications. She was discharged home on postoperative day #2 with Percocet for pain and ibuprofen. Her discharge H\T\H was 9.1 and 28.8.
== END 2016-06-02 15:05 | disposition home or self-care (01) | DRG 766 ==
LOC: EDSTATUS 05-28 07:30 → C.LD 05-31 05:22 → C.OBG 05-31 11:57
PROVIDERS: ADMIT Obstetrics & Gynecology; ATTEND Obstetrics & Gynecology
PROC: 10D00Z1 Extraction of Products of Conception, Low, Open Approach (ICD-10-PCS; principal; 2016-05-31 07:30)
PROC: 0UN90ZZ Release Uterus, Open Approach (ICD-10-PCS; principal; 2016-05-31 07:30)
DX: O48.0 Post-term pregnancy (principal); Z37.0 Single live birth; O34.219 Maternal care for unspecified type scar from previous cesarean delivery; O99.89 Other specified diseases and conditions complicating pregnancy, childbirth and the puerperium; K66.0 Peritoneal adhesions (postprocedural) (postinfection); O99.62 Diseases of the digestive system complicating childbirth; K21.9 Gastro-esophageal reflux disease without esophagitis; O99.02 Anemia complicating childbirth; O69.81X0 Labor and delivery complicated by cord around neck, without compression, not applicable or unspecified; D64.9 Anemia, unspecified; O99.214 Obesity complicating childbirth; Z3A.40 40 weeks gestation of pregnancy; Z68.35 Body mass index [BMI] 35.0-35.9, adult